=== PATIENT | male | born 1985 | race Caucasian/White ===

== ENCOUNTER 2016-05-29 03:34 | Inpatient (IN) | payer MEDICARE ==
[~2016-05-29] VITALS: Ht 172.7 cm; Wt 77.1 kg
[~2016-05-29 03:34] MED LIST: BACTRIM D.S. TAB1 EA PO; HABITROL 21 MG P1 EA TD; LORTAB 5-325 M1 EACH PO; ZUBSOLV 5.7-1.1 EACH SL
[2016-05-29 05:48] LABS: HEMOGLOBIN 13.7 gm/dl (14.0-17.5); RED BLOOD COUNT 4.62 M/UL (4.20-5.50)
[2016-05-29 06:05] LABS: BUN/CREATININE RATIO 24 (0-10)
[2016-05-29] MEDS ORDERED: SUBOXONE 8 MG-1 EACH SL (11:08)
[2016-05-29] MEDS ORDERED: AUGMENTIN 875-1 EACH PO (11:17)
[2016-05-30 14:36] LABS: HEMOGLOBIN 13.8 gm/dl (14.0-17.5); RED BLOOD COUNT 4.6 M/UL (4.20-5.50); WHITE BLOOD COUNT 12.6 K/UL (4.5-11.0)
[2016-05-30 14:54] LABS: BUN/CREATININE RATIO 14 (0-10)
[2016-05-31 06:38] LABS: RED BLOOD COUNT 4.69 M/UL (4.20-5.50)
[2016-05-31 06:51] LABS: BUN/CREATININE RATIO 15 (0-10)
[2016-05-31] MEDS ORDERED: SUBOXONE 8 MG-1 EACH SL (11:04)
[2016-05-31] MEDS ORDERED: BACTROBAN OINT22 GM TOP (11:07)
[2016-05-31] MEDS ORDERED: IBUPROFEN600 MG PO (11:12)
[2016-05-31] MEDS ORDERED: ZYVOX600 MG PO (11:13)
== END 2016-05-31 12:38 | disposition home or self-care (01) | DRG 603 ==
LOC: ER1 03:34 → ZEROF 08:25 → M/S 08:25
PROVIDERS: Physician Assistant Medical; Student in an Organized Health Care Education/Training Program; ADMIT Internal Medicine Infectious Disease
DX: L02.511 Cutaneous abscess of right hand (principal); L03.114 Cellulitis of left upper limb; L03.115 Cellulitis of right lower limb; L02.512 Cutaneous abscess of left hand; B95.4 Other streptococcus as the cause of diseases classified elsewhere; Z86.14 Personal history of Methicillin resistant Staphylococcus aureus infection; F17.210 Nicotine dependence, cigarettes, uncomplicated; F11.21 Opioid dependence, in remission; D72.829 Elevated white blood cell count, unspecified; Z79.899 Other long term (current) drug therapy
CPT/HCPCS: 36415; 73130; 80048; 80053; 83735; 85025; 85027; 87040; 87070; 87205; 90714; 96365; 96366; 99284; G0378; J0295; J1885; J3370; J7050; J7070